=== PATIENT | female | born 1950 | race Caucasian/White ===

== ENCOUNTER → 2018-07-12 | Outpatient (REF) | payer BC ==
[~2018-07-12] MED LIST: ACETAMINOPHEN325 MG PO; ALEVE220 M1 PO; ALEVE220 MG PO; AMLODIPINE5 MG PO; BENADRYL25 MG PO; CARDIZEM CD 180 PO; CEPHALEXIN500 MG PO; CORTEF10 MG PO; CORTEF5 MG PO; CULTURELL1 OR; CULTURELL1 PO; HYDROCORT10 MG PO; HYDROCORTISONE10 MG OR; HYDROCORTISONE10 MG PO; LEVOTHROID125 MCG PO; LEVOTHYROXIN112 MC1 PO; LISINOPRIL40 MG PO; LORCET 5-325 MG1 TAB; OMEGA 3550 MG PO; PRAVASTATIN10 MG PO; PREVACID30 M3 PO; ROCEPHIN 22 GM/VIAL IV; ROCEPHIN1 G1 IV; SOMATROPIN SC; TENIVAC1 ML IM; TRAMADOL HCL100 MG PO; TRAMADOL HCL50 MG PO; ULTRAM ER100 MG PO; VITAMIN B 6100 MG OR; VITAMIN B-121000 MC1 SL; VITAMIN D2000 UNIT OR; VITAMIN D32000 UNIT PO; VOLTAREN1%GEL TOP; XARELTO10 MG PO; ZESTRIL10 MG PO
== END | disposition home or self-care (01) | DRG 951 ==
LOC: MAMMO 07:05
PROVIDERS: ATTEND Obstetrics & Gynecology
DX: Z12.31 Encounter for screening mammogram for malignant neoplasm of breast (principal)

== ENCOUNTER 2021-10-22 05:45 | Emergency (ER) | payer MEDICARE ==
[~2021-10-22] VITALS: Ht 162.6 cm; Wt 88.0 kg
[2021-10-22 06:17] LABS: HEMOGLOBIN 12.2 g/dl (12.0-16.0); IMMATURE GRANULOCYTES 0.4 % (0.0-5.0); MEAN CORPUSCULAR HGB 29.2 pG CALC (26.0-32.0); MEAN CORPUSCULAR HGB CONC 31.3 g/dL CAL (32.0-36.0); NEUT# 5.15 thou/uL (2.00-7.15); RED BLOOD COUNT 4.18 mill/uL (4.20-5.60); RED CELL DISTRI WIDTH 13.9 % (11.5-15.5)
[2021-10-22 06:19] LABS: MEAN CELL VOLUME 93.3 fL CALC (80.0-100.0)
[2021-10-22 06:29] LABS: ALBUMIN 3.7 g/dL (3.2-5.0); ALKALINE PHOSPHATASE 79 u/l (38-126); BILIRUBIN, TOTAL 0.4 mg/dL (0.0-1.4); BUN 20 mg/dL (8-23); BUN/CREATININE RATIO 23 (12-20 (CALC)); CARBON DIOXIDE 22 mmol/l (22-30); CHLORIDE 108 mmol/l (95-108); CREATININE 0.9 mg/dL (0.5-1.0); GFR FOR AFR.AMER. > 60 ML/MIN (>=60 (CALC)); GFR OTHER RACES > 60 ML/MIN (>=60 (CALC)); LIPASE 36 u/l (23-300); SGOT/AST 29 u/l (9-36); SODIUM 138 mmol/l (137-146); TOTAL PROTEIN 6.3 g/dL (6.3-8.2)
[2021-10-22 06:46] VITALS: BP 121/71
[2021-10-22 06:50] LABS: ANION GAP 11 (6-22 (CALC)); POTASSIUM 3.1 mmol/l (3.5-5.1)
[2021-10-22 07:00] VITALS: BP 121/71
== END 2021-10-22 07:00 | disposition short-term general hospital (02) ==
LOC: ED 05:45
PROVIDERS: Family Medicine
DX: I21.19 ST elevation (STEMI) myocardial infarction involving other coronary artery of inferior wall (principal); I44.2 Atrioventricular block, complete; I10 Essential (primary) hypertension; Z20.822 Contact with and (suspected) exposure to COVID-19
CPT/HCPCS: J1644

== ENCOUNTER 2021-11-08 07:22 | Emergency (ER) | payer MEDICARE ==
[~2021-11-08] VITALS: Ht 162.6 cm; Wt 80.0 kg
[2021-11-08] MEDS ORDERED: ASPIRIN81 MG PO (08:18)
[2021-11-08] MEDS ORDERED: LIPITOR80 M1 PO (08:18)
[2021-11-08] MEDS ORDERED: METOPROL TAR25 MG PO (08:19)
[2021-11-08] MEDS ORDERED: BRILINTA90 MG PO (08:19)
[2021-11-08] MEDS ORDERED: VIBRANT (08:20)
[2021-11-08 08:24] LABS: HEMATOCRIT 39.8 % (37.0-47.0); IMMATURE GRANULOCYTES 0.1 % (0.0-5.0); MEAN CELL VOLUME 89.6 fL CALC (80.0-100.0); MEAN CORPUSCULAR HGB 29.3 pG CALC (26.0-32.0); MEAN CORPUSCULAR HGB CONC 32.7 g/dL CAL (32.0-36.0); NEUT# 4.11 thou/uL (2.00-7.15); RED BLOOD COUNT 4.44 mill/uL (4.20-5.60); RED CELL DISTRI WIDTH 14.1 % (11.5-15.5)
[2021-11-08 10:08] LABS: ALBUMIN 3.9 g/dL (3.2-5.0); ALKALINE PHOSPHATASE 91 u/l (38-126); ANION GAP 10 (6-22 (CALC)); BILIRUBIN, TOTAL 0.5 mg/dL (0.0-1.4); BUN 17 mg/dL (8-23); BUN/CREATININE RATIO 18 (12-20 (CALC)); CARBON DIOXIDE 25 mmol/l (22-30); CHLORIDE 110 mmol/l (95-108); CREATININE 0.9 mg/dL (0.5-1.0); GFR FOR AFR.AMER. > 60 ML/MIN (>=60 (CALC)); GFR OTHER RACES > 60 ML/MIN (>=60 (CALC)); POTASSIUM 3.5 mmol/l (3.5-5.1); SGOT/AST 25 u/l (9-36); SODIUM 141 mmol/l (137-146); TOTAL PROTEIN 6.6 g/dL (6.3-8.2)
[2021-11-08 10:38] LABS: TSH, 3RD GENERATION < 0.02 uIU/mL (0.47 - 4.68)
[2021-11-08] MEDS ORDERED: XARELTO20 MG PO (11:40)
[2021-11-08 12:46] VITALS: BP 130/83
== END 2021-11-08 12:48 | disposition home or self-care (01) ==
LOC: ED 07:22
PROVIDERS: Family Medicine
DX: I48.91 Unspecified atrial fibrillation (principal); E05.80 Other thyrotoxicosis without thyrotoxic crisis or storm; T38.1X5A Adverse effect of thyroid hormones and substitutes, initial encounter; I10 Essential (primary) hypertension; I25.10 Atherosclerotic heart disease of native coronary artery without angina pectoris; E03.9 Hypothyroidism, unspecified; I25.2 Old myocardial infarction; Z20.822 Contact with and (suspected) exposure to COVID-19; Z95.5 Presence of coronary angioplasty implant and graft

== ENCOUNTER 2022-03-08 13:02 | Emergency (ER) | payer MEDICARE ==
[~2022-03-08] VITALS: Ht 162.6 cm; Wt 89.6 kg
[2022-03-08] VITALS (14 sets, daily range): BP systolic 112–159; BP diastolic 58–122
[~2022-03-08 13:02] MED LIST changes: +ASPIRIN81 MG PO; +BRILINTA90 MG PO; +LIPITOR80 M1 PO; +METOPROL TAR25 MG PO; +VIBRANT; +XARELTO20 MG PO
[2022-03-08 13:32] LABS: HEMATOCRIT 37.1 % (37.0-47.0); HEMOGLOBIN 11.5 g/dl (12.0-16.0); IMMATURE GRANULOCYTES 0.2 % (0.0-5.0); MEAN CELL VOLUME 97.1 fL CALC (80.0-100.0); MEAN CORPUSCULAR HGB 30.1 pG CALC (26.0-32.0); NEUT# 8.25 thou/uL (2.00-7.15); RED BLOOD COUNT 3.82 mill/uL (4.20-5.60); RED CELL DISTRI WIDTH 14.6 % (11.5-15.5)
[2022-03-08] MEDS ORDERED: VIBRANT (13:39)
[2022-03-08] MEDS ORDERED: METOPROL TAR25 MG PO (13:39)
[2022-03-08] MEDS ORDERED: LEVOTHYROXIN100 MCG PO (13:40)
[2022-03-08 13:45] LABS: ALBUMIN 4.2 g/dL (3.2-5.0); ALKALINE PHOSPHATASE 108 u/l (38-126); ANION GAP 12 (6-22 (CALC)); BILIRUBIN, TOTAL 0.5 mg/dL (0.0-1.4); BUN 22 mg/dL (8-23); BUN/CREATININE RATIO 21 (12-20 (CALC)); CARBON DIOXIDE 26 mmol/l (22-30); CHLORIDE 108 mmol/l (95-108); GFR FOR AFR.AMER. > 60 ML/MIN (>=60 (CALC)); GFR OTHER RACES 55 ML/MIN (>=60 (CALC)); POTASSIUM 3.8 mmol/l (3.5-5.1); SGOT/AST 33 u/l (9-36); SODIUM 142 mmol/l (137-146)
[2022-03-08 14:10] LABS: URINE BILIRUBIN - DIPSTICK NEGATIVE (NEGATIVE); URINE BLOOD DIPSTICK NEGATIVE (NEGATIVE); URINE COLOR YELLOW; URINE GLUCOSE - DIPSTICK NEGATIVE (NEGATIVE); URINE KETONE NEGATIVE (NEGATIVE); URINE LEUK ESTERASE NEGATIVE (NEGATIVE); URINE PROTEIN - DIPSTICK NEGATIVE (NEG-TRACE)
[2022-03-08 14:12] LABS: URINE NITRITE - DIPSTICK NEGATIVE (Negative)
[2022-03-08 17:35] LABS: TSH, 3RD GENERATION < 0.02 uIU/mL (0.47 - 4.68)
[2022-03-09 02:03] VITALS: BP 144/81
== END 2022-03-09 02:03 | disposition short-term general hospital (02) ==
LOC: ED 13:02
PROVIDERS: Family Medicine
DX: R41.82 Altered mental status, unspecified (principal); I10 Essential (primary) hypertension; I48.91 Unspecified atrial fibrillation; E03.9 Hypothyroidism, unspecified; I25.2 Old myocardial infarction; Z79.01 Long term (current) use of anticoagulants

== ENCOUNTER 2022-08-13 21:45 | Emergency (ER) | payer MEDICARE ==
[~2022-08-13] VITALS: Ht 162.6 cm; Wt 87.0 kg
[~2022-08-13 21:45] MED LIST changes: +LEVOTHYROXIN100 MCG PO
[2022-08-13] MEDS ORDERED: LISINOPRIL10 MG PO (22:16)
[2022-08-13] MEDS ORDERED: ESCITALOPRAM OX10 MG PO (22:18)
[2022-08-13] MEDS ORDERED: VIBRAMYCIN100 M2 PO (22:18)
[2022-08-13] MEDS ORDERED: LEVOTHYROXIN50 MCG PO (22:19)
[2022-08-13 22:45] LABS: BASO% 0.5 % (0-3); EOS% 3.2 % (0-8); HEMATOCRIT 31.2 % (37.0-47.0); HEMOGLOBIN 9.6 g/dl (12.0-16.0); IMMATURE GRANULOCYTES 0.4 % (0.0-5.0); LYMPH% 13.9 % (15-41); MEAN CELL VOLUME 97.5 fL CALC (80.0-100.0); MEAN CORPUSCULAR HGB CONC 30.8 g/dL CAL (32.0-36.0); MONO% 6.4 % (2-13); NEUT# 6.23 thou/uL (2.00-7.15); NEUT% 75.6 % (42-76); RED BLOOD COUNT 3.2 mill/uL (4.20-5.60); RED CELL DISTRI WIDTH 15.6 % (11.5-15.5)
[2022-08-13 22:58] LABS: ALBUMIN 3.6 g/dL (3.2-5.0); ALKALINE PHOSPHATASE 120 u/l (38-126); ANION GAP 11 (6-22 (CALC)); BUN 38 mg/dL (8-23); BUN/CREATININE RATIO 32 (12-20 (CALC)); CARBON DIOXIDE 26 mmol/l (22-30); CHLORIDE 108 mmol/l (95-108); CREATININE 1.2 mg/dL (0.5-1.0); GFR FOR AFR.AMER. 54 ML/MIN (>=60 (CALC)); GFR OTHER RACES 45 ML/MIN (>=60 (CALC)); MAGNESIUM 2.1 mg/dL (1.6-2.3); POTASSIUM 4.1 mmol/l (3.5-5.1); SGOT/AST 30 u/l (9-36); SODIUM 141 mmol/l (137-146); TOTAL PROTEIN 5.9 g/dL (6.3-8.2)
[2022-08-13 22:59] LABS: BILIRUBIN, TOTAL 1.1 mg/dL (0.02-1.3)
[2022-08-13] MEDS ORDERED: SYNTHROID25 MCG PO (23:42)
[2022-08-14 00:28] VITALS: BP 141/71
== END 2022-08-14 00:28 | disposition home or self-care (01) ==
LOC: ED 21:45
PROVIDERS: Family Medicine
DX: I48.91 Unspecified atrial fibrillation (principal); E03.9 Hypothyroidism, unspecified; I10 Essential (primary) hypertension; I25.2 Old myocardial infarction; Z86.79 Personal history of other diseases of the circulatory system; Z95.5 Presence of coronary angioplasty implant and graft; Z79.02 Long term (current) use of antithrombotics/antiplatelets; Z79.01 Long term (current) use of anticoagulants

== ENCOUNTER 2022-08-27 12:49 | Emergency (ER) | payer MEDICARE ==
[~2022-08-27] VITALS: Ht 162.6 cm; Wt 195.0 kg
[2022-08-27] VITALS (26 sets, daily range): BP systolic 65–131; BP diastolic 31–97
[~2022-08-27 12:49] MED LIST changes: +ESCITALOPRAM OX10 MG PO; +LEVOTHYROXIN50 MCG PO; +LISINOPRIL10 MG PO; +SYNTHROID25 MCG PO; +VIBRAMYCIN100 M2 PO
[2022-08-27 13:34] LABS: BASO% 0.6 % (0-3); EOS% 1.2 % (0-8); LYMPH% 17.1 % (15-41); MEAN CELL VOLUME 101.7 fL CALC (80.0-100.0); MEAN CORPUSCULAR HGB 30.6 pG CALC (26.0-32.0); MEAN CORPUSCULAR HGB CONC 30.1 g/dL CAL (32.0-36.0); NEUT# 9.36 thou/uL (2.00-7.15); NEUT% 75.1 % (42-76); RED BLOOD COUNT 1.8 mill/uL (4.20-5.60); RED CELL DISTRI WIDTH 17.6 % (11.5-15.5)
[2022-08-27 13:37] LABS: HEMATOCRIT 18.3 % (37.0-47.0); HEMOGLOBIN 5.5 g/dl (12.0-16.0)
[2022-08-27 13:44] LABS: ALBUMIN 3.2 g/dL (3.2-5.0); ALKALINE PHOSPHATASE 61 u/l (38-126); BUN 49 mg/dL (8-23); BUN/CREATININE RATIO 45 (12-20 (CALC)); CHLORIDE 109 mmol/l (95-108); CREATININE 1.1 mg/dL (0.5-1.0); GFR FOR AFR.AMER. 60 ML/MIN (>=60 (CALC)); GFR OTHER RACES 49 ML/MIN (>=60 (CALC)); POTASSIUM 4.3 mmol/l (3.5-5.1); SGOT/AST 31 u/l (9-36); SODIUM 136 mmol/l (137-146); TOTAL PROTEIN 5.4 g/dL (6.3-8.2)
[2022-08-27 13:46] LABS: ANION GAP 13 (6-22 (CALC)); BILIRUBIN, TOTAL 0.3 mg/dL (0.02-1.3); CARBON DIOXIDE 18 mmol/l (22-30)
[2022-08-27 14:48] LABS: HEMATOCRIT 17.2 % (37.0-47.0); HEMOGLOBIN 5.2 g/dl (12.0-16.0)
== END 2022-08-27 16:27 | disposition short-term general hospital (02) ==
LOC: ED 12:49
PROVIDERS: Family Medicine; Nurse Practitioner
PROC: 05HM33Z Insertion of Infusion Device into Right Internal Jugular Vein, Percutaneous Approach (ICD-10-PCS; principal; 2022-08-27)
PROC: 30243N1 Transfusion of Nonautologous Red Blood Cells into Central Vein, Percutaneous Approach (ICD-10-PCS; 2022-08-27)
PROC: 30243N1 Transfusion of Nonautologous Red Blood Cells into Central Vein, Percutaneous Approach (ICD-10-PCS; 2022-08-27)
DX: K92.2 Gastrointestinal hemorrhage, unspecified (principal); D64.9 Anemia, unspecified; I95.9 Hypotension, unspecified; D72.829 Elevated white blood cell count, unspecified; E87.20 Acidosis, unspecified; I10 Essential (primary) hypertension; I48.91 Unspecified atrial fibrillation; I25.2 Old myocardial infarction; E03.9 Hypothyroidism, unspecified; Z86.79 Personal history of other diseases of the circulatory system; Z95.5 Presence of coronary angioplasty implant and graft; Z79.01 Long term (current) use of anticoagulants; Z20.822 Contact with and (suspected) exposure to COVID-19; Z79.02 Long term (current) use of antithrombotics/antiplatelets
CPT/HCPCS: P9016; S0164

== ENCOUNTER 2022-12-09 21:24 | Emergency (ER) | payer MEDICARE ==
[~2022-12-09] VITALS: Ht 162.6 cm; Wt 90.0 kg
[2022-12-09 21:46] VITALS: BP 142/65
[2022-12-09 22:00] VITALS: BP 149/68
[2022-12-09 22:28] VITALS: BP 147/87
[2022-12-09 22:29] LABS: BASO% 0.5 % (0-3); EOS% 2.4 % (0-8); IMMATURE GRANULOCYTES 0.1 % (0.0-5.0); LYMPH% 25.7 % (15-41); MEAN CORPUSCULAR HGB 25.9 pG CALC (26.0-32.0); MEAN CORPUSCULAR HGB CONC 29.9 g/dL CAL (32.0-36.0); MONO% 6.9 % (2-13); NEUT# 6.07 thou/uL (2.00-7.15); NEUT% 64.4 % (42-76); RED BLOOD COUNT 3.4 mill/uL (4.20-5.60); RED CELL DISTRI WIDTH 15.6 % (11.5-15.5)
[2022-12-09 22:33] LABS: HEMATOCRIT 29.4 % (37.0-47.0); HEMOGLOBIN 8.8 g/dl (12.0-16.0); MEAN CELL VOLUME 86.5 fL CALC (80.0-100.0)
[2022-12-09 22:39] VITALS: BP 144/56
[2022-12-09 22:43] LABS: ALBUMIN 3.5 g/dL (3.2-5.0); CREATININE 1.1 mg/dL (0.5-1.0); POTASSIUM 3.6 mmol/l (3.5-5.1); TOTAL PROTEIN 6.3 g/dL (6.3-8.2)
[2022-12-09 22:46] VITALS: BP 160/68
[2022-12-09 22:49] LABS: BILIRUBIN, TOTAL 0.5 mg/dL (0.02-1.3)
[2022-12-09 22:57] LABS: ACT PARTIAL THROMBO TIME 43.6 SECONDS (20.0-32.5); INTERNATIONAL NORMALIZED RATIO 1.9 RATIO (0.7-1.3); PROTHROMBIN TIME 18.3 SECONDS (9.0-12.5)
[2022-12-09 23:16] VITALS: BP 107/60
[2022-12-10 00:03] VITALS: BP 107/60
== END 2022-12-10 00:03 | disposition home or self-care (01) ==
LOC: ED 21:24
PROVIDERS: Emergency Medicine
DX: S00.83XA Contusion of other part of head, initial encounter (principal); S80.01XA Contusion of right knee, initial encounter; I10 Essential (primary) hypertension; E89.3 Postprocedural hypopituitarism; I25.2 Old myocardial infarction; W17.89XA Other fall from one level to another, initial encounter; Y92.003 Bedroom of unspecified non-institutional (private) residence as the place of occurrence of the external cause; Z91.81 History of falling; Z87.820 Personal history of traumatic brain injury; Z79.01 Long term (current) use of anticoagulants; Z88.0 Allergy status to penicillin

== ENCOUNTER 2023-06-19 13:16 | Emergency (ER) | payer MEDICARE ==
[2023-06-19] VITALS (7 sets, daily range): BP systolic 113–132; BP diastolic 56–107
[~2023-06-19] VITALS: Ht 162.6 cm; Wt 78.0 kg
[~2023-06-19 13:16] MED LIST changes: +FERROUS SULFAT325 MG PO; +PROTONIX40 M2 PO; +TOPROL XL25 M1 PO
== END 2023-06-19 16:01 | disposition home or self-care (01) ==
LOC: ED 13:16
DX: S00.03XA Contusion of scalp, initial encounter (principal); I10 Essential (primary) hypertension; I48.91 Unspecified atrial fibrillation; E03.9 Hypothyroidism, unspecified; W19.XXXA Unspecified fall, initial encounter; I25.2 Old myocardial infarction; Z86.79 Personal history of other diseases of the circulatory system

== ENCOUNTER 2023-06-25 00:23 | Observation (INO) | payer MEDICARE ==
[2023-06-25] VITALS (20 sets, daily range): BP systolic 113–151; BP diastolic 49–113
[~2023-06-25] VITALS: Ht 162.6 cm; Wt 75.0 kg
[2023-06-25] MEDS ORDERED: SYNTHROID25 MCG PO (00:54)
[2023-06-25] MEDS ORDERED: PLAVIX75 MG PO (00:59)
[2023-06-25 01:14] LABS: BASO% 0.1 % (0-3); EOS% 0.2 % (0-8); HEMATOCRIT 39.4 % (37.0-47.0); IMMATURE GRANULOCYTES 0.8 % (0.0-5.0); LYMPH% 6.7 % (15-41); MEAN CELL VOLUME 91.2 fL CALC (80.0-100.0); MEAN CORPUSCULAR HGB 29.2 pG CALC (26.0-32.0); MONO% 5.6 % (2-13); NEUT# 13.73 thou/uL (2.00-7.15); NEUT% 86.6 % (42-76); RED BLOOD COUNT 4.32 mill/uL (4.20-5.60); RED CELL DISTRI WIDTH 14.1 % (11.5-15.5)
[2023-06-25 01:18] LABS: HEMOGLOBIN 12.6 g/dl (12.0-16.0)
[2023-06-25 01:38] LABS: ALBUMIN 4.1 g/dL (3.2-5.0); BILIRUBIN, TOTAL 0.5 mg/dL (0.02-1.3); CREATININE 1.5 mg/dL (0.5-1.0); POTASSIUM 3.6 mmol/l (3.5-5.1); TOTAL PROTEIN 6.5 g/dL (6.3-8.2)
[2023-06-25] MEDS ORDERED: MIDAZOLAM HCL 2 MG/2 ML VIAL IV ONE (02:10)
[2023-06-25] MEDS ORDERED: SODIUM CHLORIDE 0.9% 1,000 ML IV ONE (04:35)
[2023-06-25] MEDS ORDERED: ONDANSETRON HCl 4 MG/2 ML SDV IV PRN (05:35)
[2023-06-25] MEDS ORDERED: MAGNESIUM HYDROXIDE 30 ML UDC PO PRN (05:35)
[2023-06-25] MEDS ORDERED: FAMOTIDINE 10MG/ML 2ML SDV IV PRN (05:35)
[2023-06-25] MEDS ORDERED: IBUPROFEN 800 MG/TAB PO PRN (05:35)
[2023-06-25] MEDS ORDERED: SODIUM CHLORIDE 0.45% 1,000 ML IV PRN (05:35)
[2023-06-25] MEDS ORDERED: ALUM & MAG HYDROX-SIMETHICONE 30 ML PO PRN (05:35)
[2023-06-25] MEDS ORDERED: ONDANSETRON 4 MG/TAB ODT PO PRN (05:35)
[2023-06-25] MEDS ORDERED: LISINOPRIL20 M1 PO (12:00)
[2023-06-25] MEDS ORDERED: DOXYCYCLINE HY100 MG PO (12:01)
[2023-06-25] MEDS ORDERED: HYDROCORTISONE5 MG PO (13:09)
[2023-06-25] MEDS ORDERED: LEVOTHYROXIN75 MCG PO (14:03)
[2023-06-25] MEDS ORDERED: FERROUS SULFATE 325 MG/TAB PO SCH (16:00)
[2023-06-25] MEDS ORDERED: CLOPIDOGREL BISULFATE 75 MG/TAB TAB PO SCH (16:00)
[2023-06-25] MEDS ORDERED: ESCITALOPRAM 10 MG/TAB PO SCH (16:00)
[2023-06-25] MEDS ORDERED: ASPIRIN 81 MG/TAB PO SCH (16:00)
[2023-06-25 17:27] LABS: URINE BLOOD DIPSTICK Trace-lysed (NEGATIVE); URINE GLUCOSE - DIPSTICK Negative (NEGATIVE); URINE KETONE Negative (NEGATIVE); URINE LEUK ESTERASE Negative (NEGATIVE); URINE NITRITE - DIPSTICK Negative (Negative); URINE PROTEIN - DIPSTICK 30 mg/dL (NEG-TRACE); URINE SPECIFIC GRAVITY >=1.030; URINE UROBILINOGEN - DIPSTICK 0.2 E.U./dL (0.2)
[2023-06-25 17:29] LABS: URINE COLOR Yellow
[2023-06-25 17:34] LABS: URINE RBC 0-2 RBC/hpf (0-5); URINE SQUAMOUS EPITHELIAL CELL FEW EPI/hpf (0-FEW); URINE WBC 0-2 WBC/hpf (0-5)
[2023-06-25] MEDS ORDERED: DOXYCYCLINE HYCLATE 100 MG/CAP PO SCH (21:00)
[2023-06-25] MEDS ORDERED: ATORVASTATIN CALCIUM 40 MG/TAB PO SCH (21:00)
[2023-06-25] MEDS ORDERED: PANTOPRAZOLE SODIUM Sesquihydr 40 MG/TAB PO SCH (21:00)
[2023-06-26] MEDS ORDERED: ACETAMINOPHEN 325 MG/TAB PO PRN (02:20)
[2023-06-26 04:14] VITALS: BP 129/59
[2023-06-26 04:56] LABS: BASO% 0.3 % (0-3); EOS% 1.3 % (0-8); IMMATURE GRANULOCYTES 0.2 % (0.0-5.0); LYMPH% 8.9 % (15-41); MEAN CELL VOLUME 92.6 fL CALC (80.0-100.0); MEAN CORPUSCULAR HGB 30.1 pG CALC (26.0-32.0); MEAN CORPUSCULAR HGB CONC 32.5 g/dL CAL (32.0-36.0); MONO% 5.4 % (2-13); NEUT# 10.57 thou/uL (2.00-7.15); NEUT% 83.9 % (42-76); RED BLOOD COUNT 3.49 mill/uL (4.20-5.60); RED CELL DISTRI WIDTH 14.3 % (11.5-15.5)
[2023-06-26 05:03] LABS: HEMATOCRIT 32.3 % (37.0-47.0); HEMOGLOBIN 10.5 g/dl (12.0-16.0)
[2023-06-26 05:28] LABS: ALKALINE PHOSPHATASE 52 u/l (38-126); ANION GAP 10 (6-22 (CALC)); BUN 22 mg/dL (8-23); BUN/CREATININE RATIO 24 (12-20 (CALC)); CARBON DIOXIDE 20 mmol/l (22-30); CHLORIDE 111 mmol/l (95-108); CREATININE 0.9 mg/dL (0.5-1.0); GFR FOR AFR.AMER. > 60 ML/MIN (>=60 (CALC)); GFR OTHER RACES > 60 ML/MIN (>=60 (CALC)); POTASSIUM 3.5 mmol/l (3.5-5.1); SGOT/AST 52 u/l (9-36); SODIUM 137 mmol/l (137-146)
[2023-06-26 05:38] LABS: ALBUMIN 2.8 g/dL (3.2-5.0); BILIRUBIN, TOTAL 0.9 mg/dL (0.02-1.3); TOTAL PROTEIN 4.9 g/dL (6.3-8.2)
[2023-06-26] MEDS ORDERED: LEVOTHYROXINE SODIUM 75 MCG/TAB PO SCH (06:00)
[2023-06-26 07:19] VITALS: BP 125/43
[2023-06-26] MEDS ORDERED: LISINOPRIL 20 MG/TAB PO SCH (09:00)
[2023-06-26 10:27] VITALS: BP 109/61
== END 2023-06-26 16:16 | disposition home or self-care (01) ==
LOC: ED 00:23 → ED-I 02:11 → MS2 05:36 → ED 05:36 → MS2 06-26 16:16
PROVIDERS: Internal Medicine; ADMIT Student in an Organized Health Care Education/Training Program; ATTEND Student in an Organized Health Care Education/Training Program
DX: R53.1 Weakness (principal); D72.829 Elevated white blood cell count, unspecified; S30.0XXA Contusion of lower back and pelvis, initial encounter; S00.93XA Contusion of unspecified part of head, initial encounter; N17.9 Acute kidney failure, unspecified; I10 Essential (primary) hypertension; I48.91 Unspecified atrial fibrillation; E03.9 Hypothyroidism, unspecified; I25.10 Atherosclerotic heart disease of native coronary artery without angina pectoris; I25.2 Old myocardial infarction; T14.8XXD Other injury of unspecified body region, subsequent encounter; X58.XXXD Exposure to other specified factors, subsequent encounter; W16.212A Fall in (into) filled bathtub causing other injury, initial encounter; Y93.F1 Activity, caregiving, bathing; Y92.002 Bathroom of unspecified non-institutional (private) residence as the place of occurrence of the external cause; Z87.820 Personal history of traumatic brain injury; Z95.818 Presence of other cardiac implants and grafts; Z95.5 Presence of coronary angioplasty implant and graft; Z91.81 History of falling
CPT/HCPCS: G0378

== ENCOUNTER 2024-03-15 18:00 | Emergency (ER) | payer MEDICARE ==
[2024-03-15] VITALS (8 sets, daily range): BP systolic 132–162; BP diastolic 56–140
[~2024-03-15] VITALS: Ht 162.6 cm; Wt 60.7 kg
[~2024-03-15 18:00] MED LIST changes: +CIMETIDINE300 MG PO; +DOXYCYCLINE HY100 MG PO; +HYDROCORTISONE5 MG PO; +LEVOTHYROXIN75 MCG PO; +LISINOPRIL20 M1 PO; +PLAVIX75 MG PO; +ZOFRAN4 MG/TAB PO
[2024-03-15] MEDS ORDERED: traMADol HCL 50 MG/TAB PO ONE (18:15)
[2024-03-15] MEDS ORDERED: TRAMADOL HYDROC50 M1 PO (19:57)
== END 2024-03-15 20:18 | disposition home or self-care (01) ==
LOC: ED 18:00
DX: S00.83XA Contusion of other part of head, initial encounter (principal); S00.81XA Abrasion of other part of head, initial encounter; I10 Essential (primary) hypertension; I48.91 Unspecified atrial fibrillation; E03.9 Hypothyroidism, unspecified; G30.9 Alzheimer's disease, unspecified; F02.80 Dementia in other diseases classified elsewhere, unspecified severity, without behavioral disturbance, psychotic disturbance, mood disturbance, and anxiety; W18.39XA Other fall on same level, initial encounter; Z86.79 Personal history of other diseases of the circulatory system; T14.8XXD Other injury of unspecified body region, subsequent encounter; X58.XXXD Exposure to other specified factors, subsequent encounter

== ENCOUNTER 2024-04-29 10:49 | Inpatient (IN) | payer MEDICARE ==
[~2024-04-29] VITALS: Ht 162.6 cm; Wt 59.0 kg
[2024-04-29] VITALS (43 sets, daily range): BP systolic 50–157; BP diastolic 23–127
[~2024-04-29 10:49] MED LIST changes: +TRAMADOL HYDROC50 M1 PO
--- NOTE | 2024-04-29 10:50 | NUR ---
PT TO ROOM 14 VIA EMS
[2024-04-29] MEDS ORDERED: cefTRIAXone SODIUM 2 GM in SODIUM CHLORIDE 0.9% 100 ML IV ONE (11:15)
--- NOTE | 2024-04-29 11:26 | NUR ---
AT BEDSIDE. ATTEMPTING TO DRAW NECESSARY BLOOD WORK AT THIS TIME.
[2024-04-29] MEDS ORDERED: DULCOLAX10 MG PO (11:34)
[2024-04-29] MEDS ORDERED: SODIUM CHLORIDE 0.9% 250 ML IV PRN (11:45)
[2024-04-29] MEDS ORDERED: SODIUM CHLORIDE 0.9% 1,000 ML IV ONE ×2 (11:45→12:40)
[2024-04-29] MEDS ORDERED: DILTIAZEM HCL 125 MG in SODIUM CHLORIDE 0.9% 100 ML IV ONE (11:45)
[2024-04-29] MEDS ORDERED: dilTIAZem HCL 50 MG/10 ML SDV IV ONE (11:45)
[2024-04-29 12:04] LABS: BASO% 0.2 % (0-3); EOS% 1.3 % (0-8); HEMATOCRIT 40.2 % (37.0-47.0); HEMOGLOBIN 12.6 g/dl (12.0-16.0); IMMATURE GRANULOCYTES 0.1 % (0.0-5.0); LYMPH% 18.5 % (15-41); MEAN CELL VOLUME 95.3 fL CALC (80.0-100.0); MEAN CORPUSCULAR HGB 29.9 pG CALC (26.0-32.0); MEAN CORPUSCULAR HGB CONC 31.3 g/dL CAL (32.0-36.0); MONO% 3.6 % (2-13); NEUT# 6.83 thou/uL (2.00-7.15); NEUT% 76.3 % (42-76); RED BLOOD COUNT 4.22 mill/uL (4.20-5.60); RED CELL DISTRI WIDTH 14.4 % (11.5-15.5)
[2024-04-29 12:19] LABS: ALBUMIN 3.7 g/dL (3.2-5.0); ALKALINE PHOSPHATASE 63 u/l (38-126); ANION GAP 14 (6-22 (CALC)); BILIRUBIN, TOTAL 0.8 mg/dL (0.02-1.3); BUN 15 mg/dL (8-23); BUN/CREATININE RATIO 12 (12-20 (CALC)); CARBON DIOXIDE 21 mmol/l (22-30); CHLORIDE 104 mmol/l (95-108); CREATININE 1.2 mg/dL (0.5-1.0); ESTIMATED GFR 48 ML/MIN (>=90 (CALC)); LIPASE 84 u/l (23-300); MAGNESIUM 2.1 mg/dL (1.6-2.3); POTASSIUM 4.6 mmol/l (3.5-5.1); SGOT/AST 41 u/l (9-36); SODIUM 134 mmol/l (137-146); TOTAL PROTEIN 6.1 g/dL (6.3-8.2)
[2024-04-29 12:20] LABS: URINE BILIRUBIN - DIPSTICK Negative (NEGATIVE); URINE BLOOD DIPSTICK Large (NEGATIVE); URINE GLUCOSE - DIPSTICK Negative (NEGATIVE); URINE KETONE 40 mg/dL (NEGATIVE); URINE LEUK ESTERASE Negative (NEGATIVE); URINE NITRITE - DIPSTICK Negative (Negative); URINE PH 5.5 (4.5-8.0); URINE PROTEIN - DIPSTICK 30 mg/dL (NEG-TRACE); URINE UROBILINOGEN - DIPSTICK 0.2 E.U./dL (0.2)
--- NOTE | 2024-04-29 12:23 | NUR ---
DR JANG IN ROOM PLACING FEMORAL LINE
[2024-04-29 12:28] LABS: URINE COLOR Yellow
[2024-04-29 12:29] LABS: URINE EPITHELIAL CELLS MODERATE EPI/hpf (0-FEW); URINE RBC >100 RBC/hpf (0-5)
--- NOTE | 2024-04-29 12:35 | NUR ---
CARDIZEM STARTED AT 5 MG/HR
[2024-04-29 12:48] LABS: TSH, 3RD GENERATION < 0.02 uIU/mL (0.47 - 4.68)
--- NOTE | 2024-04-29 13:09 | NUR ---
PT REMAINS CONFUSED AND ANXIOUS. CARDIZEM GTT GOING. PT TOLERATING WELL AT THIS TIME.
--- NOTE | 2024-04-29 14:40 | NUR ---
WOUND CARE PROVIDED TO RIGHT SKIN TEAR. 22G ON LEFT HAND REMOVED DUE TO PT REMOVING IT HERSELF.
--- NOTE | 2024-04-29 15:02 | NUR ---
AWAITING FOR CT SCAN TO BE PERFORMED
--- NOTE | 2024-04-29 16:01 | NUR ---
PT RESTLESS. ENCOURAGED TO NOT PULL LEADS FOR NEEDED FOR MONITORING.
[2024-04-29] MEDS ORDERED: AZITHROMYCIN 500 MG in SODIUM CHLORIDE 0.9% 500 ML IV ONE (16:35)
--- NOTE | 2024-04-29 17:04 | NUR ---
IV ABX RUNNING AT THIS TIME. PT PENDING ADMISSION.
--- NOTE | 2024-04-29 18:16 | NUR ---
REPORT GIVEN TO RASHIDA GARCÍA
[2024-04-29] MEDS ORDERED: BISACODYL 10 MG SUPP PR PRN (18:20)
--- NOTE | 2024-04-29 18:29 | NUR ---
PATIENT ARRIVED TO THE UNIT VIA STRETCHER ACCOMPAINED BY RICKY NARVAEZ.
--- NOTE | 2024-04-29 20:00 | NUR ---
RN assume care for this patient. [facility]. Patient is alert to her name only. Disoriented to , place, time, and situation. Patient on cardizem drip at 5mg/hr. Heart rate at 60. Cardizem drip stopped and line flushed. Patient attempting to pull midline, IV line, and telemetry cords. Patient educated about the impotance on not pulling lines and compliance with care plan. Patient reports no pain. When asked if she needed anything patient verbilized "no" and that she was comfortable. Patient educated about using call light. Bed alarm on. Side table within reach
--- NOTE | 2024-04-29 20:30 | NUR ---
Patient continue attempts to pull lines. paged. Order for mittens restrain and Ativan x1 received. Medication order faxed to Pharmacy. Tele leads fixed. Mittens applied.
[2024-04-29] MEDS ORDERED: LORazepam 0.5 MG/TAB PO SCH (20:57)
--- NOTE | 2024-04-29 22:00 | NUR ---
Patient removed mittens with mouth. RN educate patient and re-applied mittens. Patien remain confuse. Alert to self only. No changes in reassessment. Bed alarm on. Water provided. ROM performed. No complains by the patient.
[2024-04-30] VITALS (89 sets, daily range): BP systolic 93–169; BP diastolic 54–128
--- NOTE | 2024-04-30 | NUR ---
Patient sleeping. Mittens on. VS within parameters. No changes in reassessment.
--- NOTE | 2024-04-30 02:00 | NUR ---
Patient awake watching TV. Water given. No change in reassessment. AOx1.
--- NOTE | 2024-04-30 04:50 | NUR ---
Patient sleeping but easily arousable. AM labs drawn by midline. No change in reassessment. Water offered and declined by patient. Purewick cannister emptied.
--- NOTE | 2024-04-30 07:45 | NUR ---
BEDSIDE REPORT RECEIVED. PT RESTING IN BED SEMI FOWLERS WITH EYES CLOSED AND NO SIGNS OF DISTRESS; DROWSY BUT AROUSABLE TO SPEECH. ORIENTED X 1 TO NAME ONLY. DENIES PAIN. RESPIRATIONS EVEN AND UNLABORED ON ROOM AIR; LUNG SOUNDS COURSE/WHEEZES; NON PRODUCTIVE COUGH. TL CENTRAL LINE TO RIGHT FEM; APPEARS HEALTHY AND FLUSHES WITH BLOOD RETURN ONLY FROM RED LINE. CLEAR, YELLOW URINE BEING SUCTIONED VIA PURWIK CATHETER. SCATTERED ECCYMOSIS TO ALL EXTREMITIES AND OPEN AREA ON COCCYX. SAFEY MEASURES IN PLACE; CALL LIGHT WITHIN REACH. NEEDS ANTICIPATED BY STAFF.
[2024-04-30 08:01] LABS: BASO% 0.7 % (0-3); EOS% 8.2 % (0-8); LYMPH% 29.6 % (15-41); MEAN CELL VOLUME 94.7 fL CALC (80.0-100.0); MEAN CORPUSCULAR HGB 29.4 pG CALC (26.0-32.0); MEAN CORPUSCULAR HGB CONC 31.1 g/dL CAL (32.0-36.0); MONO% 6.4 % (2-13); NEUT# 1.54 thou/uL (2.00-7.15); NEUT% 55.1 % (42-76); RED BLOOD COUNT 3.4 mill/uL (4.20-5.60); RED CELL DISTRI WIDTH 14.3 % (11.5-15.5)
[2024-04-30 08:07] LABS: HEMATOCRIT 32.2 % (37.0-47.0)
--- NOTE | 2024-04-30 08:30 | NUR ---
GLUCOSE LOW; DMITRI CASTELLANOS NOTIFIED. PT TAKING ONLY SMALL SIPS OF APPLE JUICE AND DECLINING ANYTHING MORE BY MOUTH. DEXTROSE GIVEN IV. OTHERWISE, PATIENT IS CALM AND COOPERATIVE.
[2024-04-30 08:34] LABS: CREATININE 0.7 mg/dL (0.5-1.0); POTASSIUM 4.3 mmol/l (3.5-5.1)
[2024-04-30] MEDS ORDERED: LEVOTHYROXINE SODIUM 75 MCG/TAB PO SCH (09:00)
[2024-04-30] MEDS ORDERED: ASPIRIN 81 MG/TAB PO SCH (09:00)
[2024-04-30] MEDS ORDERED: DEXTROSE 250 ML IV PRN (09:15)
--- NOTE | 2024-04-30 10:45 | NUR ---
AT BEDSIDE WITH CASE MANAGEMENT TO DISCUSS DISCHARGE PLANNING.
[2024-04-30 11:52] LABS: BASO% 0.4 % (0-3); EOS% 8.6 % (0-8); HEMATOCRIT 31.2 % (37.0-47.0); HEMOGLOBIN 10.1 g/dl (12.0-16.0); LYMPH% 29.6 % (15-41); MEAN CORPUSCULAR HGB 29.4 pG CALC (26.0-32.0); MEAN CORPUSCULAR HGB CONC 32.4 g/dL CAL (32.0-36.0); MONO% 6.4 % (2-13); NEUT# 1.47 thou/uL (2.00-7.15); RED BLOOD COUNT 3.43 mill/uL (4.20-5.60); RED CELL DISTRI WIDTH 14.4 % (11.5-15.5)
--- NOTE | 2024-04-30 16:12 | NUR ---
RESTING WITH EYES CLOSED AND NO SIGNS OF DISTRESS. SAFETY MEASURES IN PLACE.
[2024-04-30] MEDS ORDERED: AZITHROMYCIN 250 MG in SODIUM CHLORIDE 0.9% 250 ML IV SCH (19:00)
[2024-04-30] MEDS ORDERED: cefTRIAXone SODIUM 2 GM in SODIUM CHLORIDE 0.9% 100 ML IV SCH (19:00)
--- NOTE | 2024-04-30 19:00 | NUR ---
REPORT RECEIVED FROM OFF GOING NURSE.
[2024-04-30] MEDS ORDERED: SODIUM CHLORIDE 0.9% 10 ML SYR IV PRN (19:05)
--- NOTE | 2024-04-30 19:24 | NUR ---
PATIENT NOTED LYING IN BED WITH HOB ELEVATED. ASSESSMENT COMPLETED (SEE INTERVENTIONS). PATIENT A/O SELF, PLEASANTLY CONFUSED. NO ACUTE DISTRESS NOTED AT THIS TIME. LUNGS CLEAR/ DIMINISHEDL. BOWEL SOUNDS ACTIVE. COMPRESSION STOKINGS IN PLACE. NO EDEMA NOTED. RIGHT FEMORAL TRIPPLE LUMEN NOTED SALINE LOCKED AT THIS TIME. VSS STABLE AT THIS TIME. BED LOCKED, IN LOW POSITION, CALL LIGHT WITHIN REACH.
[2024-04-30] MEDS ORDERED: AZITHROMYCIN 500 MG/VIAL SDV IV ONE ×2 (20:07→20:10)
[2024-04-30] MEDS ORDERED: SODIUM CHLORIDE 0.9% 10 ML SYR IV SCH (22:00)
--- NOTE | 2024-04-30 22:00 | NUR ---
PATIENT LYINT IN BED WITH NO ACUTE DISTRESS NOTED SHE HAS PULLED OF ALL LEADS. SHE WAS REORIENTED AND EDUCATED ON NEED TO KEEP EVERYTHING ON AND IN PLACE. PATIENT NOTED PLEASANTLY CONFUSED. BED LOCKED, IN LOW POSITION, CALL LIGHT WITHIN REACH.
[2024-05-01] VITALS (25 sets, daily range): BP systolic 96–234; BP diastolic 73–203
--- NOTE | 2024-05-01 | NUR ---
PATIENT NOTED LYING IN BED RESTING COMFORTABLY WITH NO ACUTE DISTRESS NOTED. PATIENT CONSTANTLY PULLING AT LINES. ORDER PLACED FOR RESTRAINTS, PATIENT ATTEMPTIMG TO PULL OUT FEMORAL LINE. SHE IS PLEASANTLY CONFUSED. BED LOCKED IN CLOSE POSITION, CALL LIGHT WITHIN REACH.
--- NOTE | 2024-05-01 06:30 | NUR ---
PATIENT BLOOD SUGAR 52 D10 GIVEN.
--- NOTE | 2024-05-01 06:32 | NUR ---
NURSE NOTIFIED ON PTS GLUCOSE.
--- NOTE | 2024-05-01 07:07 | NUR ---
REPORT GIVEN TO ONCOMING NURSE.
[2024-05-01 09:36] LABS: BASO% 0.3 % (0-3); EOS% 10.2 % (0-8); HEMOGLOBIN 10.2 g/dl (12.0-16.0); IMMATURE GRANULOCYTES 0.3 % (0.0-5.0); MEAN CELL VOLUME 89.6 fL CALC (80.0-100.0); MEAN CORPUSCULAR HGB 29.5 pG CALC (26.0-32.0); MEAN CORPUSCULAR HGB CONC 32.9 g/dL CAL (32.0-36.0); MONO% 5.5 % (2-13); NEUT# 1.87 thou/uL (2.00-7.15); NEUT% 48.7 % (42-76); RED BLOOD COUNT 3.46 mill/uL (4.20-5.60); RED CELL DISTRI WIDTH 13.9 % (11.5-15.5)
[2024-05-01 09:55] LABS: CREATININE 0.6 mg/dL (0.5-1.0); POTASSIUM 3.7 mmol/l (3.5-5.1)
--- NOTE | 2024-05-01 12:00 | NUR ---
PT LAYING IN BED RESTING WITH EYES CLOSED, NO S/S OF DISTRESS AT THIS TIME, CALL ALFONSO WITHIN REACH
--- NOTE | 2024-05-01 16:00 | NUR ---
PT SITTING UP IN BED ASKING FOR (JENNIFER) HER , PT DENIES ANY OTHER NEEDS AT THIS TIME, CALL ALFONSO WITHIN REACH
[2024-05-01] MEDS ORDERED: AZITHROMYCIN 500 MG in SODIUM CHLORIDE 0.9% 250 ML IV SCH (20:00)
--- NOTE | 2024-05-01 20:00 | NUR ---
PATIENT SITTING UP IN BED. ALERT AND ORIENTED TO PERSON ONLY, CONFUSED. LUNGS COARSE/DIMINISHED TO ASCULTATION. BREATHING EVEN AND UNLABORED ON ROOM AIR. STRONG PERIPHRAL PULSES. CONTROLLED AFIB ON THE MONITOR. DENIES CONCERNS AT THIS TIME. SAFETY MEASURES IN PLACE INCLUDING BED IN LOW POSITION, CALL LIGHT RESTING NEXT TO R HAND. HAND MITTS AT BEDSIDE. NO APPARENT DISTRESS NOTED. WILL CONTINUE WITH PLAN OF CARE.
[2024-05-01] MEDS ORDERED: Zaleplon 5 MG/CAP PO PRN (20:10)
--- NOTE | 2024-05-01 23:47 | NUR ---
PATIENT NOTED TO BE PULLING AT FEMORAL LINE. PATIENT REDIRECTED AND REPOSITIONED FOR COMFORT. WILL CONTINUE WITH PLAN OF CARE.
--- NOTE | 2024-05-01 23:52 | NUR ---
PATIENT CONTINUOUSLY PULLING AT FEMORAL LINE, REMOVING LEADS, AND PULSE OX MONITOR. PATIENT UNABLE TO BE REDIRECTED. REPOSITIONING INEFFECTIVE.
[2024-05-02] VITALS (8 sets, daily range): BP systolic 129–154; BP diastolic 76–121
--- NOTE | 2024-05-02 00:14 | NUR ---
PATIENT PLACED BACK ON MONITOR. LYING IN BED RESTING. VSS. NO APPARENT DISTRESS NOTED. WILL CONTINUE WITH PLAN OF CARE
--- NOTE | 2024-05-02 04:05 | NUR ---
PATIENT LYING IN BED. REPOSITIONED TO L SIDE. PATIENT PLEASANTLY CONFUSED. DENIES CONCERNS AT THIS TIME. VSS. WILL CONTINUE WITH PLAN OF CARE.
[2024-05-02 05:21] LABS: BASO% 0.3 % (0-3); EOS% 11.1 % (0-8); HEMATOCRIT 32.4 % (37.0-47.0); LYMPH% 38.3 % (15-41); MEAN CELL VOLUME 89.3 fL CALC (80.0-100.0); MEAN CORPUSCULAR HGB 30.3 pG CALC (26.0-32.0); MONO% 5.8 % (2-13); NEUT# 1.69 thou/uL (2.00-7.15); NEUT% 44.5 % (42-76); RED BLOOD COUNT 3.63 mill/uL (4.20-5.60); RED CELL DISTRI WIDTH 13.8 % (11.5-15.5)
[2024-05-02 05:39] LABS: BILIRUBIN, TOTAL 0.5 mg/dL (0.02-1.3); CREATININE 0.6 mg/dL (0.5-1.0); POTASSIUM 3.8 mmol/l (3.5-5.1); TOTAL PROTEIN 5.3 g/dL (6.3-8.2)
--- NOTE | 2024-05-02 06:11 | NUR ---
PATIENT'S POINT OF CARE GLUCOSE 68, GIVEN 4 OZ OF APPLE JUICE AND HONEY DONNA CRACKERS
--- NOTE | 2024-05-02 08:00 | NUR ---
REPORT RECEIVED FROM NIGHT NURSE. PT IS ALERT AND ORIENTED TO PERSON ONLY. PT HAS HX OF ALZHEIMERS. LUNG SOUNDS DIMINISHED UPPER, COARSE LOWER. PT IS ON RA; NO COUGH OR SOB NOTED. HEART SOUNDS S1S2; PT IS AFIB CONTROLLED RATE ON MONITOR. BS ACTIVE; ABDOMEN SOFT/NON-TENDER. PULSES WEAL ALL EXTREMETIES. SKIN W/D; ULCER NOTED ON COCCYX. PT REPOSITIONS INDEPENDENTLY. AFEBRILE. PT GIVEN BREAKFAST TRAY BUT REFUSING TO EAT AT THIS TIME. CURRENTLY WATCHING TV. ALL NEEDS MET. VSS.
--- NOTE | 2024-05-02 12:00 | NUR ---
NO CHANGES TO PT STATUS. PT HAD BRIEF VISIT BY SPOUSE. PT ASSESSED BY PT. BLOOD SUGAR LOW, PT GIVEN JUICE TO DRINK AND LUNCH TRAY. PT REPOSITIONED IN BED AND ENCOURAGED TO EAT.
--- NOTE | 2024-05-02 16:00 | NUR ---
NO CHANGES TO PT STATUS. PT ASSESSED EARLIER BY PT. PT REMAINS RESTING IN BED WITH TV ON. PT STARTED PULLING AT LINES BUT REDIRECTED. CALL LIGHT IN REACH. VSS.
--- NOTE | 2024-05-02 19:15 | NUR ---
awakens easily. denies distress. pt is oriented to name only. library monitor shows sinus rhythm pacs pvcs. rt fem line in place & flushes well. purewick cath in place. urine clear yellow. fall precautions & bed alarm conts.
[2024-05-03] VITALS: BP 153/94
--- NOTE | 2024-05-03 00:01 | NUR ---
eyes closed. no distress. cardiac cath lab radiology technologist shows sinus rhythm pacs pvcs.
--- NOTE | 2024-05-03 04:00 | NUR ---
eyes closed. no distress.
[2024-05-03 06:20] LABS: HEMATOCRIT 32.2 % (37.0-47.0); HEMOGLOBIN 11.1 g/dl (12.0-16.0); MEAN CELL VOLUME 86.1 fL CALC (80.0-100.0); MEAN CORPUSCULAR HGB 29.7 pG CALC (26.0-32.0); MEAN CORPUSCULAR HGB CONC 34.5 g/dL CAL (32.0-36.0); RED BLOOD COUNT 3.74 mill/uL (4.20-5.60); RED CELL DISTRI WIDTH 13.5 % (11.5-15.5)
[2024-05-03 07:03] LABS: ALBUMIN 3.1 g/dL (3.2-5.0); BILIRUBIN, TOTAL 0.5 mg/dL (0.02-1.3); CREATININE 0.6 mg/dL (0.5-1.0); MAGNESIUM 1.8 mg/dL (1.6-2.3); POTASSIUM 4.3 mmol/l (3.5-5.1); TOTAL PROTEIN 5.4 g/dL (6.3-8.2)
--- NOTE | 2024-05-03 08:00 | NUR ---
REPORT RECEIVED FROM NIGHT NURSE. PT IS ORIENTED TO PERSON ONLY. LUNG SOUNDS DIMINISHED LOWER, COARSE UPPER. PT IS ON RA. NO COUGH OR SOB NOTED. HEART SOUNDS S1S2; PT IS AFIB CONTROLLED RATE ON MONITOR. BS ACTIVE; ABDOMEN SOFT/NON-TENDER. PULSES WEAK ALL EXTREMETIES. SKIN W/D; BANDAGE TO RIGHT ARM CLEAN/DRY; MEPILEX ON COCCYX, LEGS REMAIN BRUISED, NO CHANGES FROM ADMISSION. PT DENIES ANY PAIN. REPOSITIONED IN BED. CALL LIGHT IN REACH. VSS.
[2024-05-03 08:01] VITALS: BP 136/86
[2024-05-03 08:47] VITALS: BP 146/77
[2024-05-03 12:00] VITALS: BP 129/78
--- NOTE | 2024-05-03 12:00 | NUR ---
PT WAS ASSESSED BY PT AND ASSISTED UP TO THE CHAIR MAX ASSIST. PT REMAINS IN CHAIR AT THIS TIME; PT ENCOURAGED TO DRINK JUICE DUE TO LOW BLOOD SUGAR BUT PT VERY RELUCTANT. PT SPOUSE NOW AT BEDSIDE ASSISTING PT TO EAT LUNCH. CALL LIGHT IN REACH, VSS.
--- NOTE | 2024-05-03 14:15 | NUR ---
FAMILY MEMBER AT BEDSIDE WAS ABLE TO GET PT TO EAT SOME OF HER LUNCH. REMAINS IN CHAIR. CALL LIGHT IN REACH. VSS.
[2024-05-03 16:00] VITALS: BP 141/82
--- NOTE | 2024-05-03 19:10 | NUR ---
pts legs are over side of bed. repositioned in bed. bed alarm conts.
--- NOTE | 2024-05-03 19:15 | NUR ---
awake. watching tv. remains confused. director cardiac shows sinus rhythm pacs pvcs. rt fem tlc in place & flushes well. po fluids taken poor. purewick cath in place. urine clear yellow. turns self. fall precautions & bed alarm conts.
[2024-05-03 20:01] VITALS: BP 142/99
[2024-05-03] MEDS ORDERED: Cefdinir 300 MG/CAP PO SCH (21:00)
[2024-05-04] VITALS (10 sets, daily range): BP systolic 128–174; BP diastolic 59–112
--- NOTE | 2024-05-04 00:01 | NUR ---
eyes closed. no distress. monitor car operator shows sinus rhythm pacs pvcs.
--- NOTE | 2024-05-04 04:00 | NUR ---
resting quietly. resps even & unlabored. room inspector shows sinus rhythm.
[2024-05-04 06:13] LABS: BILIRUBIN, TOTAL 0.6 mg/dL (0.02-1.3); CREATININE 0.6 mg/dL (0.5-1.0); POTASSIUM 4.3 mmol/l (3.5-5.1); TOTAL PROTEIN 5.4 g/dL (6.3-8.2)
--- NOTE | 2024-05-04 07:55 | NUR ---
PT REPORT RECEIVED PER GROUP ROOMS COORDINATOR AT SHIFT CHANGE, LAYING IN BED, UNABLE TO ANSWER ANY QUESTIONS, WILL CONTINUE TO MONITER.
--- NOTE | 2024-05-04 08:28 | NUR ---
PHYSICAL THERAPY AT BEDSIDE. WILL BE PLACING IN CHAIR.
[2024-05-04] MEDS ORDERED: SODIUM CHLORIDE 1 GM/TAB TAB PO SCH (09:00)
--- NOTE | 2024-05-04 12:34 | NUR ---
PT REMAINS SITTING UP IN CHAIR, AT BESIDE.
--- NOTE | 2024-05-04 14:05 | NUR ---
PT BACK FROM AD, FAMILY AT BEDSIDE. , RESP HERE FOR NEB TREATMENT
--- NOTE | 2024-05-04 15:32 | NUR ---
PT PLACED BACK IN BED WITH [employer] [facility]
--- NOTE | 2024-05-04 17:29 | NUR ---
pts at bedside, trying to feed pt, but pt is eating minimal, stating she doesnt want anything else. no change in status at this time.
--- NOTE | 2024-05-04 19:05 | NUR ---
awake. remains confused. no resp distress. engine monitor shows sinus rhythm pacs pvcs. rt fem tlc in place. po fluids encouraged but taken poor. purewick cath in place. urine yellow. fall precautions cont. bed alarm on.
[2024-05-05] VITALS: BP 148/72
--- NOTE | 2024-05-05 00:05 | NUR ---
eyes closed. no distress.
--- NOTE | 2024-05-05 04:00 | NUR ---
talking out in sleep. no distress. airport tower controller shows sinus rhythm.
[2024-05-05 04:01] VITALS: BP 155/73
--- NOTE | 2024-05-05 05:30 | NUR ---
blood drawn & sent to lab.
[2024-05-05] MEDS ORDERED: LEVOTHYROXINE SODIUM 75 MCG/TAB PO SCH (06:00)
[2024-05-05 06:16] LABS: ALBUMIN 3.1 g/dL (3.2-5.0); BILIRUBIN, TOTAL 0.6 mg/dL (0.02-1.3); CREATININE 0.6 mg/dL (0.5-1.0); MAGNESIUM 1.9 mg/dL (1.6-2.3); POTASSIUM 4.4 mmol/l (3.5-5.1); TOTAL PROTEIN 5.4 g/dL (6.3-8.2)
[2024-05-05 06:19] LABS: HEMATOCRIT 31.8 % (37.0-47.0); HEMOGLOBIN 10.9 g/dl (12.0-16.0); MEAN CELL VOLUME 87.4 fL CALC (80.0-100.0); MEAN CORPUSCULAR HGB 29.9 pG CALC (26.0-32.0); MEAN CORPUSCULAR HGB CONC 34.3 g/dL CAL (32.0-36.0); RED BLOOD COUNT 3.64 mill/uL (4.20-5.60); RED CELL DISTRI WIDTH 13.4 % (11.5-15.5)
[2024-05-05 08:01] VITALS: BP 142/78
--- NOTE | 2024-05-05 08:21 | NUR ---
pt report received pt sitting up in bed, eating breakfast, and drinking approx 30 percent of food
[2024-05-05] MEDS ORDERED: UREA 15 GM PO SCH (12:00)
[2024-05-05 12:01] VITALS: BP 135/71
--- NOTE | 2024-05-05 14:55 | NUR ---
PT RESTING QUIETLY WATCHING TV.
[2024-05-05 19:39] VITALS: BP 141/71
--- NOTE | 2024-05-05 20:00 | NUR ---
PATIENT LYING IN BED RESTING. ASSESSMENT COMPLETED. PATIENT ALERT AND ORIENTED TO PERSON ONLY. DENIES PAIN AT THIS TIME. LUNGS DIMINISHED TO ASCULTATION. BREATHING EVEN AND UNLABORED ON ROOM AIR. SAFETY MEASURES IN PLACE INCLUDING BED IN LOW POSITION AND CALL LIGHT RESTING NEXT TO R HAND. NO APPARENT DISTRESS NOTED. WILL CONTINUE WITH PLAN OF CARE.
[2024-05-05] MEDS ORDERED: HYDROCORTISONE 5 MG PO SCH (21:00)
[2024-05-06] VITALS (7 sets, daily range): BP systolic 119–169; BP diastolic 75–90
--- NOTE | 2024-05-06 | NUR ---
PATIENT APPEARS TO BE RESTING WITH EYES CLOSED. NO APPARENT DISTRESS NOTED. WILL CONTINUE WITH PLAN OF CARE.
--- NOTE | 2024-05-06 04:03 | NUR ---
PATIENT APPEARS TO BE RESTING WITH EYES CLOSED. NO APPARENT DISTRESS NOTED. WILL CONTINUE WITH PLAN OF CARE.
--- NOTE | 2024-05-06 07:15 | NUR ---
RECEIVED PT IN BED AAOX1 AND H[place]. PT AT BEDSIDE. PT CONFUSED AND NOT ANSWERING IN QUESTION. NO S/S OF CHEST PAIN OR SOB ON ASSESSMENT. SAFETY AND COMFORT MEASURES MAINTAINED.
[2024-05-06 08:37] LABS: HEMATOCRIT 31.5 % (37.0-47.0); HEMOGLOBIN 10.7 g/dl (12.0-16.0); MEAN CELL VOLUME 87.7 fL CALC (80.0-100.0); MEAN CORPUSCULAR HGB 29.8 pG CALC (26.0-32.0); RED BLOOD COUNT 3.59 mill/uL (4.20-5.60); RED CELL DISTRI WIDTH 13.9 % (11.5-15.5)
--- NOTE | 2024-05-06 08:49 | NUR ---
pt had 1 INC change @0830. Full Bed Change. Full Bed Bath. Bed alarm in place. Call light within reach.
[2024-05-06 09:29] LABS: ALBUMIN 3.4 g/dL (3.2-5.0); BILIRUBIN, TOTAL 0.6 mg/dL (0.02-1.3); CREATININE 0.6 mg/dL (0.5-1.0); TOTAL PROTEIN 6.1 g/dL (6.3-8.2)
[2024-05-06] MEDS ORDERED: SODIUM CHLORIDE 0.9% 1,000 ML IV PRN (09:45)
--- NOTE | 2024-05-06 12:00 | NUR ---
NO CHANGE IN PT STATUS FROM PREVIOUS ASSESSMENT. CONTINUE TO MONITOR PT FOR ANY CHANGES. PT EATING <25% OF MEAL. PT AT BEDSIDE.
--- NOTE | 2024-05-06 18:00 | NUR ---
PT STABLE AT THIS TIME. NO CHEST PAIN OR SOB NOTED ON ASSESSMENT. NO C/O PAIN ON ASSESSMENT. PT NOT ANSWERING QUESTIONS OR FOLLOOWING COMMANDS. NS INFUSING @ 100 ML/HR AT THIS TIME. REASSURANCE PROVIDED TO AND COMFORT MEASURES MAINTAINED FOR PT ALONG WITH SAFETY PRECAUTIONS.
--- NOTE | 2024-05-06 20:00 | NUR ---
PATIENT SITTING UP IN BED. ASSESSMENT COMPLETED. PATIENT ALERT AND ORIENTED TO SELF ONLY. DENIES PAIN AT THIS TIME. LUNGS CLEAR/DIMINISHED TO ASCULTATION. BREATHING EVEN AND UNLABORED ON ROOM AIR. DENIES CONCERNS AT THIS TIME. PUREWICK PATENT AND TO SUCTION WITH 350 mL OF URINE NOTED. SAFETY MEASURES IN PLACE INCLUDING BED IN LOW POSITION, BED ALARM ACTIVE AND CALL LIGHT RESTING NEXT TO L HAND. NO APPARENT DISTRESS NOTED. WILL CONTINUE WITH PLAN OF CARE
--- NOTE | 2024-05-07 00:01 | NUR ---
PATIENT APPEARS TO BE RESTING WITH EYES CLOSED. NO APPPARENT DISTRESS NOTED. WILL CONTINUE WITH PLAN OF CARE.
--- NOTE | 2024-05-07 03:49 | NUR ---
PATIENT APPEARS TO BE RESTING WITH EYES CLOSED. NO APPARENT DISTRESS NOTED. WILL CONTINUE WITH PLAN OF CARE
[2024-05-07 05:01] VITALS: BP 142/77
[2024-05-07 06:16] LABS: BASO% 0.9 % (0-3); EOS% 5.8 % (0-8); HEMATOCRIT 34.4 % (37.0-47.0); HEMOGLOBIN 11.4 g/dl (12.0-16.0); IMMATURE GRANULOCYTES 0.2 % (0.0-5.0); LYMPH% 31.1 % (15-41); MEAN CELL VOLUME 87.5 fL CALC (80.0-100.0); MEAN CORPUSCULAR HGB CONC 33.1 g/dL CAL (32.0-36.0); MONO% 7.5 % (2-13); NEUT# 2.33 thou/uL (2.00-7.15); NEUT% 54.5 % (42-76); RED BLOOD COUNT 3.93 mill/uL (4.20-5.60); RED CELL DISTRI WIDTH 13.8 % (11.5-15.5)
[2024-05-07 06:21] LABS: ALBUMIN 3.4 g/dL (3.2-5.0); BILIRUBIN, TOTAL 0.4 mg/dL (0.02-1.3); CREATININE 0.7 mg/dL (0.5-1.0); MAGNESIUM 2.3 mg/dL (1.6-2.3); POTASSIUM 4.6 mmol/l (3.5-5.1); TOTAL PROTEIN 5.9 g/dL (6.3-8.2)
[2024-05-07 07:50] VITALS: BP 140/72
--- NOTE | 2024-05-07 08:36 | NUR ---
PT IS RESTING IN BED, EASILY AROUSABLE. CALL LIGHT IN REACH, BED ALARM ON.
--- NOTE | 2024-05-07 09:31 | NUR ---
pt assisted to chair with spouse. pt only stood on spouses command. spouse and principal technical writer were able to get pt to stand for a few seconds and shuffle 1 step and sit side saddle on chair. pt was able to get up from chair with both assist to sit directly in chair.
[2024-05-07 10:45] VITALS: BP 107/78
--- NOTE | 2024-05-07 11:58 | NUR ---
PT IS SITTING IN BEDSIDE CHAIR, AT BEDSIDE. CALL LIGHT IN REACH.
[2024-05-07] MEDS ORDERED: DEXTROSE 5% 1,000 ML IV SCH (15:10)
[2024-05-07] MEDS ORDERED: DEXTROSE 5% 1,000 ML IV PRN (15:20)
--- NOTE | 2024-05-07 16:03 | NUR ---
PT IS IN BED, AT THE BEDSIDE. CALL LIGHT IN REACH.
[2024-05-07 17:02] VITALS: BP 154/77
[2024-05-07 18:17] LABS: ALBUMIN 3.2 g/dL (3.2-5.0); BILIRUBIN, TOTAL 0.4 mg/dL (0.02-1.3); CREATININE 0.7 mg/dL (0.5-1.0); POTASSIUM 4.6 mmol/l (3.5-5.1); TOTAL PROTEIN 5.6 g/dL (6.3-8.2)
[2024-05-07 19:23] VITALS: BP 90/69
--- NOTE | 2024-05-07 19:41 | NUR ---
PATIENT LYING IN BED. ASSESSMENT COMPLETED. PATIENT ALERT AND ORIENTED TO PERSON ONLY. DENIES PAIN AT THIS TIME. LUNGS DIMINISHED TO ASCULTATION. BREATHING EVEN AND UNLABORED ON ROOM AIR. PUREWICK TO SUCTION WITH 75 mL OF CLEAR, YELLOW URINE NOTED. NO ADDITIONAL CONCERNS AT THIS TIME. SAFETY MEASURES IN PLACE INCLUDING BED IN LOW POSITION AND CALL LIGHT RESTING NEXT TO L ARM. NO APPARENT DISTRESS NOTED. WILL CONTINUE WITH PLAN OF CARE
--- NOTE | 2024-05-08 | NUR ---
PATIENT LYING IN BED. PATIENT RESTLESS. CONTINUOUSLY PULLING OFF TELE MONITOR. ATTEMPTED TO REPLY AND PATIENT SCREAMED SOFTLY "NO! QUIT DOING THAT!". WILL ATTEMPT TO REAPPLY LATER THIS MORNING.
[2024-05-08 00:42] VITALS: BP 136/86
--- NOTE | 2024-05-08 04:16 | NUR ---
PATIENT APPEARS TO BE RESTING WITH EYES CLOSED. NO APPARENT DISTRESS NOTED. WILL CONTINUE WITH PLAN OF CARE.
[2024-05-08 05:44] VITALS: BP 156/78
[2024-05-08 06:09] LABS: BASO% 0.6 % (0-3); EOS% 5.9 % (0-8); HEMATOCRIT 30.6 % (37.0-47.0); IMMATURE GRANULOCYTES 0.2 % (0.0-5.0); LYMPH% 28.8 % (15-41); MEAN CELL VOLUME 90.3 fL CALC (80.0-100.0); MEAN CORPUSCULAR HGB 29.5 pG CALC (26.0-32.0); MEAN CORPUSCULAR HGB CONC 32.7 g/dL CAL (32.0-36.0); MONO% 8.5 % (2-13); NEUT# 3.02 thou/uL (2.00-7.15); RED BLOOD COUNT 3.39 mill/uL (4.20-5.60); RED CELL DISTRI WIDTH 14.2 % (11.5-15.5)
[2024-05-08 06:22] LABS: ALBUMIN 3.3 g/dL (3.2-5.0); BILIRUBIN, TOTAL 0.4 mg/dL (0.02-1.3); CREATININE 0.6 mg/dL (0.5-1.0); MAGNESIUM 2.3 mg/dL (1.6-2.3); POTASSIUM 3.9 mmol/l (3.5-5.1); TOTAL PROTEIN 5.9 g/dL (6.3-8.2)
--- NOTE | 2024-05-08 07:00 | NUR ---
PATIENT IS LAYING IN BED. PATIENT A&O TO SELF ONLY. NO S/SX OF PAIN OR DISTRESS NOTED AT THIS TIME.
[2024-05-08 11:31] VITALS: BP 125/76
[2024-05-08 12:00] VITALS: BP 125/76
--- NOTE | 2024-05-08 12:00 | NUR ---
PATIENT IS RESTING UNABLE TO TAKE MEDS . BS STABLE. AND NO C/O PAIN
--- NOTE | 2024-05-08 15:22 | NUR ---
THIS SAND DIGGER WAS INFORMED BY BRANCH RETAIL EXECUTIVE THAT PATIENT PULLED OUT RIGHT FEMORAL TRIPLE LUMEN CENTRAL LINE. PRESSURE DRESSING APPLIED TO AREA. PUBLICATIONS SALES REPRESENTATIVE IS JADA.
[2024-05-08 16:08] VITALS: BP 149/80
--- NOTE | 2024-05-08 18:21 | NUR ---
PATIENT CURRENTLY HAS NO IV ACCESSE . WAS PULLED OUT BY PATIENT / MD WAS NOTED
--- NOTE | 2024-05-08 19:38 | NUR ---
PATIENT LYING IN BED RESTING. ALERT AND ORIENTED TO PERSON ONLY. DENIES PAIN AT THIS TIME. LUNGS CLEAR/DIMINISHED TO ASCULTATION. BREATHING EVEN AND UNLABORED ON ROOM AIR. PATIENT DISCHARGED R. FEMORAL TL 05/08, NO IV ACCESS AT THIS TIME, PROVIDER AWARE. PUREWICK PATENT TO SUCTION WITH 90 mL OF CLEAR, YELLOW URINE IN PACE. ATTEMPTED TO PLACE TELE MONITOR ON PATIENT, PATIENT PROMPTLY REMOVED STICKERS. NO ADDITIONAL CONCERNS AT THIS TIME. SAFETY MEASURES IN PLACE INCLDUING BED IN LOW POSITION AND CALL LIGHT RESTING NEXT TO L HAND. NO APPARENT DISTRESS NOTED. WILL CONTINUE WITH PLAN OF CARE
[2024-05-09] VITALS (7 sets, daily range): BP systolic 110–155; BP diastolic 6–91
--- NOTE | 2024-05-09 00:10 | NUR ---
PATIENT APPEARS TO BE RESTING WITH EYES CLOSED. NO APPARENT DISTRESS NOTED. WILL CONTINUE WITH PLAN OF CARE.
--- NOTE | 2024-05-09 04:13 | NUR ---
PATIENT APPEARS TO BE RESTING WITH EYES CLOSED. NO APPARENT DISTRESS NOTED. WILL CONTINUE WITH PLAN OF CARE.
--- NOTE | 2024-05-09 08:00 | NUR ---
REPORT RECEIVED FROM NIGHT NURSE. PT ORIENTED TO PERSON ONLY. FOREIGN DIPLOMAT AT BEDSIDE AND PT BEING UNCOOPERATIVE WITH VS; ASSISTANCE PROVIDED. LUNG SOUNDS CLEAR/DIMINISHED; PT IS ON RA. BS ACTIVE. PT DOES NOT HAVE IV ACCESS, MD AWARE. PT DENIES ANY PAIN OR NEEDS. CALL LIGHT IN REACH. VSS.
[2024-05-09 08:37] LABS: BASO% 0.6 % (0-3); EOS% 12.4 % (0-8); HEMATOCRIT 33.9 % (37.0-47.0); HEMOGLOBIN 10.8 g/dl (12.0-16.0); LYMPH% 36.5 % (15-41); MEAN CELL VOLUME 92.6 fL CALC (80.0-100.0); MEAN CORPUSCULAR HGB 29.5 pG CALC (26.0-32.0); MEAN CORPUSCULAR HGB CONC 31.9 g/dL CAL (32.0-36.0); MONO% 7.8 % (2-13); NEUT# 2.14 thou/uL (2.00-7.15); NEUT% 42.7 % (42-76); RED BLOOD COUNT 3.66 mill/uL (4.20-5.60); RED CELL DISTRI WIDTH 14.2 % (11.5-15.5)
[2024-05-09 08:58] LABS: ALBUMIN 3.2 g/dL (3.2-5.0); BILIRUBIN, TOTAL 0.5 mg/dL (0.02-1.3); CREATININE 0.6 mg/dL (0.5-1.0); MAGNESIUM 2.3 mg/dL (1.6-2.3); POTASSIUM 4.4 mmol/l (3.5-5.1); TOTAL PROTEIN 5.8 g/dL (6.3-8.2)
--- NOTE | 2024-05-09 09:56 | NUR ---
PT's Glucose was 68 @0730. Notified nurse jennifer. Attempted to give pt orange juice and assist with feeding breakfast. Pt refused. Notified nurse.
--- NOTE | 2024-05-09 10:00 | NUR ---
NOTIFIED OF PT'S LOW GLUCOSE. PT REFUSING ANYTHING TO EAT/DRINK AND DOES NOT HAVE LINE FOR DEXTROSE, SHE REPORTEDLY CONTINUES TO PULL AT LINES AND EQUIPMENT. NOTIFIED DAILY PINZON.
--- NOTE | 2024-05-09 15:01 | NUR ---
PT IS RESTING COMFORTABLY IN BED. NO COMPLAINTS/NEEDS AT THIS TIME. PT IS DNR STATUS. A HOSPICE CONSULT WAS BEEN PLACED PREV. SHIFT
--- NOTE | 2024-05-09 17:10 | NUR ---
PT RESTING COMFORTABLY, NO CHANGES NOTED. IS @ BEDSIDE
--- NOTE | 2024-05-09 20:40 | NUR ---
spoke with provider corrections nurse at this time let her know about pt refusing meds and not eating or drinking. patient is awaiting hospice consult. I was able to get pt to take her night time meds and drink about 90ml of fluid.
--- NOTE | 2024-05-09 23:41 | NUR ---
PT IS IN ROOM SLEEPING. EQUAL RISE AND FALL OF CHEST IS NOTED. PT VITALS ARE STABLE. PT HR IS 62 SINUS RYTHM ACCORDING TO TELE MONITORING. PT HAS CALL LIGHT IN REACH AND BEDSIDE TABLE CLOSE BY. PT BED ALARM IS ACTIVE
[2024-05-10] VITALS (11 sets, daily range): BP systolic 114–144; BP diastolic 48–79
--- NOTE | 2024-05-10 07:05 | NUR ---
REPORT RECEIVED FROM RICKY MANSFIELD
--- NOTE | 2024-05-10 09:08 | NUR ---
AT BEDSIDE DISCUSSING POC WITH PT.
--- NOTE | 2024-05-10 09:33 | NUR ---
HOSPICE REP AT BEDSIDE DISCUSSING POC WITH PT AND SPOUSE.
--- NOTE | 2024-05-10 11:25 | NUR ---
PT RESTING IN SEMI FOWLERS POSITION WITH SPOUSE AT BEDSIDE, PT IS ALERT TO SELF BUT CONFUSED TO DATE AND TIME. PT DENIES ANY CURRENT PAIN OR DISCOMFORTS, PAIN SCALE AND REPORTING EDUCATED;ASSESSMENT COMPLETED;RESPIRATIONS EVEN AND UNLABORED ON RA,CLEAR LUNG SOUNDS;ABDOMEN SOFT ON PALPATION AND HYPOACTIVE IN ALL 4 QUADRANTS;WEAK PEDAL PULSE; SMALL SKIN TEAR NOTED TO RIGHT UPPER ARM- SITE CLEANED AND DRESSSED WITH VASELINE GUAZE, NON-ADHESIVE, KERLEX AND PAPER TAPE;PUREWICK CATHETER IN PLACE AND DRAINING WITH EASE;NO IV SITE, MD AWARE;TELE MONITORING IN PLACE;PT IS A DNR CODE STATUS AND UNDER HOSPICE EVALV AT THIS TIME;PT DENIES ANY ADDITIONAL NEEDS AND IS ENCOURAGED TO CALL FOR ASSISTANCE IF NEEDED;FALL PRECAUTIONS IN PLACE WITH BED IN THE LOWEST POSITION AND BED ALARM ON FOR SAFETY;CALL LIGHT IN REACH;FREQUENT ROUNDS MADE.
--- NOTE | 2024-05-10 11:25 | NUR ---
PT RESTING IN SEMI FOWLERS POSITION WATCHING TV;RESPIRATIONS EVEN AND UNLABORED ON RA;PT DENIES ANY CURRENT PAIN OR DISCOMFORTS BUT DOES REMAIN CONFUSED;TELE MONITORING IN PLACE;NO IV ACCESS, MD AWARE;PUREWICK CATHETER DRAINING WITH EASE;PT ENCOURAGED TO CALL FOR ASSISTANCE IF NEEDED;FALL PRECAUTIONS IN PLACE WITH BED IN THE LOWEST POSITION AND BED ALARM ON FOR SAFETY;CALL LIGHT IN REACH;FREQUENT ROUNDS MADE.
--- NOTE | 2024-05-10 15:30 | NUR ---
PT RESTING IN SEMI FOWLERS POSITION WATCHING TV, PLEASANTLY CONFUSED AT THIS TIME;RESPIRATIONS EVEN AND UNLABORED ON RA;PT DENIES ANY CURRENT PAIN OR DISCOMFORTS;TELE MONITORING IN PLACE;PUREWICK CATHETER DRAINING WITH EASE;NO IV SITE, ALISON URIBE AWARE;PT TO BE TRANSPORTED TO HOME TOMORROW UNDR HOSPICE CARE;PT DENIES ANY ADDITIONAL NEEDS AND IS ENCOURAGED TO CALL FOR ASSISTANCE IF NEEDED;FALL PRECAUTIONS REMAIN IN PLACE WITH BED IN THE LOWETS POSITION AND CALL LIGHT IN REACH;FREQUENT ROUNDS MADE.
--- NOTE | 2024-05-10 19:55 | NUR ---
PT RESTING IN BED WATCHING TV AT THIS TIME. PT IS ALERT AND AWAKE TO HERSELF-ORIENTED TO PLACE. LUNGS CLEAR TO AUCULTATION. BREAHING EVEN AND UNLABORED. WEAK PEDAL PULSES. ACTIVE BOWEL IN ALL FOUR QUADRANTS. NO IV NOTED, SKIN IS WARM AND DRY AND BRUISE NOTED TO HER RIGHT KNEE. TELE MONITOR IN PLACE WORKING WELL WITH LEADS INTACT. PUREWICK WITH CLEAR YELLOW URINE. DENIES ANY NEEDS AT THIS TIME. CALL LIGHT IN REACH AND SAFETY PRECAUTIONS IN PLACE.
--- NOTE | 2024-05-11 | NUR ---
PT RESTING IN BED WITH EYES CLOSED. NO DISTRESS NOTED. RESPS ARE EVEN AND UNALBORED TELE MONITOR IN PLACE SHOWING SR WITH PVC- 83 AT THIS TIME. CALL LIGHT IN REACH
--- NOTE | 2024-05-11 04:00 | NUR ---
PT RESTING IN SUPINE POSITION WITH EYES CLOSED. RESPS ARE EVEN AND UNLABORED. TELE MONITOR RUNNING [id number] AT THIS TIME. CALL LIGHT IN REACH AND SAFETY PRECAUTIONS IN PLACE
[2024-05-11 04:24] VITALS: BP 126/62
[2024-05-11 06:28] VITALS: BP 149/81
--- NOTE | 2024-05-11 07:20 | NUR ---
PT LAYING IN BED RESTING WITH EYES CLOSED, AROUSES EASILY TO VERBAL STIMULI, PT IS ORIENTED TO SELF ONLY, NORMAL S1 S2 HEART SOUNDS, TELE MONITOR IN PLACE, ABD DISTENDED AND SOFT WITH ACTIVE BOWEL SOUNDS, WEAK RADIAL AND PEDAL PULSES, SAFETY MEASURES REINFORCED, CALL ALFONSO WITHIN REACH
[2024-05-11 11:03] VITALS: BP 127/79
--- NOTE | 2024-05-11 12:00 | NUR ---
PT LAYING IN BED RESTING WITH EYES OPEN, PT DENIES ANY NEEDS AT THIS TIME, NO S/S OF DISTRESS, CALL ALFONSO WITHIN REACH
--- NOTE | 2024-05-11 12:50 | NUR ---
Discharge instructions given. Patient verbalizes understanding of same. Discharged in stable condition via Wheelchair to Home (Hospice care) with staff. All belongings sent with pt.
== END 2024-05-11 12:50 | disposition hospice, home (50) | DRG 70 ==
LOC: ED 10:49 → ED-I 16:10 → ED 16:44 → ICU 16:45 → MS2 04-30 20:02 → ICU 04-30 20:03 → MS2 05-05 18:46
PROVIDERS: Family Medicine; Internal Medicine; Nurse Practitioner Family; ADMIT Internal Medicine; ATTEND Internal Medicine
PROC: 06HY33Z Insertion of Infusion Device into Lower Vein, Percutaneous Approach (ICD-10-PCS; principal; 2024-04-29)
DX: G93.49 Other encephalopathy (principal); J18.9 Pneumonia, unspecified organism; E46 Unspecified protein-calorie malnutrition; E87.1 Hypo-osmolality and hyponatremia; I10 Essential (primary) hypertension; I48.91 Unspecified atrial fibrillation; I25.10 Atherosclerotic heart disease of native coronary artery without angina pectoris; E03.9 Hypothyroidism, unspecified; I25.2 Old myocardial infarction; G30.9 Alzheimer's disease, unspecified; F02.80 Dementia in other diseases classified elsewhere, unspecified severity, without behavioral disturbance, psychotic disturbance, mood disturbance, and anxiety; S80.12XA Contusion of left lower leg, initial encounter; S80.11XA Contusion of right lower leg, initial encounter; K59.00 Constipation, unspecified; D64.9 Anemia, unspecified; E86.0 Dehydration; R62.7 Adult failure to thrive; W19.XXXA Unspecified fall, initial encounter; Z68.22 Body mass index [BMI] 22.0-22.9, adult; Z79.52 Long term (current) use of systemic steroids; Z20.822 Contact with and (suspected) exposure to COVID-19; Z86.79 Personal history of other diseases of the circulatory system; Z95.5 Presence of coronary angioplasty implant and graft; Z86.39 Personal history of other endocrine, nutritional and metabolic disease; Z91.81 History of falling
CPT/HCPCS: J0456; J0696; Q9967